=== PATIENT | male | born 1940 | race Two or more races ===

== ENCOUNTER 2018-12-22 15:04 | Inpatient (IN) | payer MEDICARE, MEDICAID ==
[~2018-12-22] VITALS: Ht 175.3 cm; Wt 65.6 kg
[2018-12-22] MEDS ORDERED: SODIUM CHLORIDE 0.9% 1,000 ML IV ONE (15:55)
[2018-12-22 16:22] LABS: Basophils # (auto) 0 uL; Basophils % (auto) 0.6 % (0.0-2.0); Eosinophils # (auto) 0 uL; Eosinophils % (auto) 0.6 % (0.0-7.0); Hematocrit 40.8 % (41.0-53.0); Hemoglobin 13.6 g/dL (13.5-17.5); Lymphocytes % (auto) 15.2 % (10.0-50.0); Mean Corpuscular Hemoglobin 29.9 pg (28.0-32.0); Mean Corpuscular Hgb Conc. 33.3 g/dL (32.0-36.0); Mean Corpuscular Volume 89.7 fL (80.0-100.0); Monocytes # (auto) 0.4 uL; Monocytes % (auto) 6.2 % (0.0-12.0); Neutrophils # (auto) 4.9 uL; Neutrophils % (auto) 77.4 % (37.0-80.0); Platelet Count (auto) 174 10^3/uL (140-450); Red Blood Cells 4.55 10^6/uL (4.5-5.90); Red Cell Distribution Width 16.4 % (11.8-14.3); White Blood Cell 6.3 10^3/uL (4.4-10.8)
[2018-12-22 16:31] LABS: Albumin 3.4 g/dL (3.4-5.0); Anion Gap 4 (5-15); Blood Urea Nitrogen 16 mg/dL (7-18); Calcium 8.5 mg/dL (8.5-10.1); Carbon Dioxide 29 mmol/L (21-32); Chloride 108 mmol/L (98-107); Glucose 108 mg/dL (74-106); Potassium 3.9 mmol/L (3.5-5.1); Sodium 141 mmol/L (136-145)
[2018-12-22 16:36] LABS: Alkaline Phosphatase 120 U/L (45-117); Aspartate Aminotransferase 15 U/L (15-37); BUN/Creatinine Ratio 16.8; Bilirubin, Total 0.3 mg/dL (0.2-1.0); GFR African American 98 mL/min; GFR Non-African American 81 mL/min; Total Protein 6.7 g/dL (6.4-8.2)
[2018-12-22 16:59] LABS: Alanine Aminotransferase 6 U/L (16-61)
[2018-12-22] MEDS ORDERED: ONDANSETRON HCL 4 MG/2 ML VIAL IV PRN (21:15)
[2018-12-22] MEDS ORDERED: ACETAMINOPHEN 325 MG TAB PO PRN (21:15)
[2018-12-22] MEDS ORDERED: DOCUSATE SOD 100 MG CAP PO PRN (21:15)
[2018-12-22] MEDS ORDERED: MORPHINE SULF INJ 2 MG/ML SYRINGE 1ML IV PRN (22:00)
[2018-12-22] MEDS ORDERED: NITROGLYCERIN 0.4 MG SL TAB SL PRN (22:00)
[2018-12-22 22:23] LABS: INR 1.05 (0.9-1.15); Partial Thromboplastin Time 28.7 sec (23.64-32.05)
--- NOTE | 2018-12-22 23:11 | NUR ---
Opening Shift Note Received from ed with no sbar handoff report. Assumed care of patient. Patient is awake, alert, and orientated x 4. No S/S of distress/SOB or pain with 2L of oxygen given via nasal cannula. Son is at bedside. Bed is in lowest position with side rails up x 2. Bed brakes are locked and call light is with in reach. HOB is 30 degrees. Instructed on POC and to call for assist PRN, will continue to monitor for changes Q1hr and PRN.
[2018-12-23] MEDS: CARBIDOPA W LEVODOPA 25/250mg TABLET PO SCH ×5 (00:25→23:16)
[2018-12-23] MEDS: FAMOTIDINE 20 MG TAB PO SCH ×3 (00:25→23:15)
[2018-12-23] MEDS ORDERED: ENTA200T4 OR (02:23)
[2018-12-23] MEDS ORDERED: POTA10TA51 PO (02:23)
[2018-12-23] MEDS ORDERED: CHOL50007 PO (02:23)
[2018-12-23] MEDS ORDERED: PANT20TA59 PO (02:23)
[2018-12-23] MEDS ORDERED: RASA1TAB4 PO (02:23)
[2018-12-23] MEDS ORDERED: CARB25TA75 PO (02:23)
[2018-12-23] MEDS ORDERED: APIX5TAB PO (02:23)
[2018-12-23 05:00] VITALS: BP 121/70
[2018-12-23 06:59] LABS: Anion Gap 4 (5-15); BUN/Creatinine Ratio 16.9; Blood Urea Nitrogen 13 mg/dL (7-18); Calcium 8.3 mg/dL (8.5-10.1); Carbon Dioxide 28 mmol/L (21-32); Chloride 112 mmol/L (98-107); GFR African American 125 mL/min; GFR Non-African American 103 mL/min; Glucose 79 mg/dL (74-106); Potassium 3.7 mmol/L (3.5-5.1); Sodium 144 mmol/L (136-145)
--- NOTE | 2018-12-23 07:03 | NUR ---
CLOSING NOTES ENDORSED CARE TO DAY SHIFT NURSEDONALD.
[2018-12-23 09:00] VITALS: BP 103/65
[2018-12-23] MEDS ORDERED: INFLUENZA QUAD 2019-2020 0.5ml SYRG IM ONE (09:00)
[2018-12-23] MEDS: ASPirin 81 mg TAB PO SCH (10:24)
--- NOTE | 2018-12-23 10:41 | NUR ---
PASSED MORNING MEDICATIONS, PT AWAKE, ALERT, ORIENTED x3. DENIES ANY DISCOMFORT AT MOMENT. EFFORTLESS BREATHING ON 2LNC. BED LOCKED AND IN LOWEST POSITION, CALL LIGHT WITHIN REACH. WILL CONTINUE TO MONITOR.
--- NOTE | 2018-12-23 12:00 | NUR ---
PT REPORTS HAVING DIFFICULTY CATCHING BREATH, PRESENTS [place] RR:28 PT PULLED UP IN BED, PLACED IN HIGH FOWLERS, PLACED O2 AT 3LNC PT REPORTS NOW BREATHING BETTER; RR: 19 AT MOMENT. VS: HR:56; BP: 112/58, 100% 3LNC WILL CONTINUE TO MONITOR.
[2018-12-23 13:00] VITALS: BP 106/63
--- NOTE | 2018-12-23 13:55 | NUR ---
DR. GARCIA IN TO SEE PT. MADE AWARE OF SOB EPISODE. CARDIOLOGY CONSULT CALLED.
--- NOTE | 2018-12-23 15:38 | NUR ---
PT BACK FROM STRESS TEST. FIRST PHASE. PHASE 2 IN AM; PER TECH. PT PROVIDED COMFORTABLE ENVIRONMENT. CALL LIGHT WITHIN REACH.
--- NOTE | 2018-12-23 15:43 | NUR ---
SPOKE TO SON REGARDING ELIQUIS PRESCRIPTION. PT ON ELIQUIS FOR Hx OF LEFT LUNG BLOOD CLOT. MD GARCIA MADE AWARE OF FINDING; RECEIVED ORDER FOR CONTINUATION OF ELIQUIS. ORDER INPUT.
[2018-12-23] MEDS ORDERED: APIXABAN 5 MG TAB PO ONE (16:00)
--- NOTE | 2018-12-23 16:08 | NUR ---
DR. GARCIA MADE AWARE OF D-DIMER VALUE: 0.46
--- NOTE | 2018-12-23 16:40 | NUR ---
IV INSERTION TO RFA#20 FOR STRESS TEST IN AM. PT TOLERATED PROCEDURE WELL.
[2018-12-23 17:00] VITALS: BP 127/69
--- NOTE | 2018-12-23 19:24 | NUR ---
Opening Shift Note Received report from day shift nurseScott. Assumed care of patient. Patient is awake, alert, and orientated x 3. No S/S of distress/SOB or pain with 2L of oxygen given via nasal cannula. Bed is in lowest position with side rails up x 2. Bed brakes are locked and call light is with in reach. HOB is 30 degrees. Instructed on POC and to call for assist PRN, will continue to monitor for changes Q1hr and PRN.
[2018-12-23 22:00] VITALS: BP 106/64
[2018-12-23] MEDS: APIXABAN 5 MG TAB PO SCH (23:15)
--- NOTE | 2018-12-24 00:01 | NUR ---
npo pt is npo after midnight for procedure today.
--- NOTE | 2018-12-24 04:24 | NUR ---
ekg Scheduled ekg done on patient. No changes from prior.
[2018-12-24 05:00] VITALS: BP 136/65
[2018-12-24] MEDS: CARBIDOPA W LEVODOPA 25/250mg TABLET PO SCH ×4 (06:00→22:05)
--- NOTE | 2018-12-24 07:21 | NUR ---
closing notes endorsed care to day shift nurseAshly.
[2018-12-24] MEDS ORDERED: ADENOSINE 60 MG in GIVE UN-DILUTED 0 ML IV ONE (08:15)
[2018-12-24 09:07] VITALS: BP 114/72
[2018-12-24] MEDS: APIXABAN 5 MG TAB PO SCH ×2 (12:44→22:05)
[2018-12-24] MEDS: FAMOTIDINE 20 MG TAB PO SCH ×2 (12:44→22:05)
[2018-12-24] MEDS: ASPirin 81 mg TAB PO SCH (12:44)
[2018-12-24 13:16] VITALS: BP 118/71
[2018-12-24 16:03] VITALS: BP 117/76
--- NOTE | 2018-12-24 19:11 | NUR ---
Opening Shift Note Assumed care of patient, awake and alert x3. No S/S of distress/SOB or pain. Patient's son is at bedside. Call light is within reach, side rails up x2, bed is in lowest position. Instructed on POC and to call for assist PRN. All questions and concerns answered, will continue to monitor for changes Q1hr and PRN.
--- NOTE | 2018-12-24 20:13 | NUR ---
Possible DC tomorrow Patient's son stated if his dad was to be discharged tomorrow he wouldn't be able to pick him up until after 1800. He gets off work at 1800 and would be able to come here right after.
[2018-12-24 22:00] VITALS: BP 148/76
[2018-12-25 05:00] VITALS: BP 98/62
--- NOTE | 2018-12-25 06:35 | NUR ---
SINEMET NOT AVAILABLE Called pharmacy because Sinemet is unavailable. They said they will bullet it up.
[2018-12-25] MEDS: CARBIDOPA W LEVODOPA 25/250mg TABLET PO SCH ×2 (07:00→12:07)
--- NOTE | 2018-12-25 07:50 | NUR ---
Morning Note Assumed care of patient, awake and alert. Respiration are even and unlabored. No S/S of distress/SOB. Bed in lowest position, breaks locked, side rails up x2, call light with in reach. Instructed on POC and to call for assist PRN, will continue to monitor for changes Q1hr and PRN.
[2018-12-25 08:41] VITALS: BP 149/75
[2018-12-25] MEDS: FAMOTIDINE 20 MG TAB PO SCH (09:42)
[2018-12-25] MEDS: ASPirin 81 mg TAB PO SCH (09:42)
[2018-12-25] MEDS: APIXABAN 5 MG TAB PO SCH (09:42)
--- NOTE | 2018-12-25 12:55 | NUR ---
Discharge instructions given as ordered. Encourage to follow up with PMD as instructed. All questions and concerns addressed. Patient and family verbalized understanding. Medication reconciliation form completed and copy given to patient. No home medications held in Pharmacy and none returned to patient, and no needed vaccines given. IV removed with catheter intact, pressure dressing applied. Telemetry unit returned to ICU. Patient waiting for transportation home from family. Will continue to monitor.
[2018-12-25 13:01] VITALS: BP 99/61
--- NOTE | 2018-12-25 14:50 | NUR ---
Patient taken to vehicle via wheelchair with all personal belongings, accompanied by staff and family member. No distress noted at time of departure.
== END 2018-12-25 14:50 | disposition home or self-care (01) | DRG 203 ==
LOC: ER 15:13 → TELE 15:14 → TELE-CENTR 23:02
PROVIDERS: ADMIT Nurse Practitioner; ATTEND Internal Medicine
DX: R07.89 Other chest pain (principal); G20 Parkinson's disease; I70.0 Atherosclerosis of aorta; R29.810 Facial weakness; Z86.711 Personal history of pulmonary embolism; Z79.01 Long term (current) use of anticoagulants; Z23 Encounter for immunization
CPT/HCPCS: 36415; 70450; 71045; 78452; 80048; 80053; 84484; 85025; 85379; 85610; 85730; 93005; 93017; 93306; 96361; 96365; 96372; G0378; J0153

== ENCOUNTER 2019-10-19 11:31 | Emergency (ER) | payer MEDICARE, MEDICAID ==
[~2019-10-19] VITALS: Ht 157.5 cm; Wt 79.4 kg
[~2019-10-19 11:31] MED LIST: APIX5TAB PO; CARB25TA75 PO; CHOL50007 PO; ENTA200T4 OR; PANT20TA59 PO; POTA10TA51 PO; RASA1TAB4 PO
[2019-10-19] MEDS ORDERED: SODIUM CHLORIDE 0.9% 1,000 ML IV ONE (12:35)
[2019-10-19 13:56] LABS: Basophils # (auto) 0 10 ^3/uL (0-0.2); Basophils % (auto) 0.6 % (0.0-2.0); Eosinophils # (auto) 0 10 ^3/uL (0-0.8); Eosinophils % (auto) 0.2 % (0.0-7.0); Hematocrit 41.8 % (41.0-53.0); Hemoglobin 13.6 g/dL (13.5-17.5); Lymphocytes # (auto) 0.9 10 ^3/uL (0.4-5.4); Mean Corpuscular Hemoglobin 28.5 pg (28.0-32.0); Mean Corpuscular Hgb Conc. 32.6 g/dL (32.0-36.0); Mean Corpuscular Volume 87.3 fL (80.0-100.0); Monocytes # (auto) 0.3 10 ^3/uL (0-1.3); Monocytes % (auto) 5.8 % (0.0-12.0); Neutrophils # (auto) 4.1 10 ^3/uL (1.6-8.6); Neutrophils % (auto) 76.4 % (37.0-80.0); Platelet Count (auto) 178 10^3/uL (140-450); Red Blood Cells 4.79 10^6/uL (4.5-5.90); Red Cell Distribution Width 16.3 % (11.8-14.3); White Blood Cell 5.4 10^3/uL (4.4-10.8)
[2019-10-19 14:12] LABS: Alanine Aminotransferase 17 U/L (16-61); Albumin 3.4 g/dL (3.4-5.0); Anion Gap 2 (5-15); Aspartate Aminotransferase 14 U/L (15-37); Blood Urea Nitrogen 16 mg/dL (7-18); Calcium 8.3 mg/dL (8.5-10.1); Carbon Dioxide 28 mmol/L (21-32); Chloride 110 mmol/L (98-107); Glucose 93 mg/dL (74-106); Potassium 3.9 mmol/L (3.5-5.1); Sodium 140 mmol/L (136-145)
[2019-10-19 14:17] LABS: Alkaline Phosphatase 101 U/L (45-117); BUN/Creatinine Ratio 17.4; Bilirubin, Total 0.7 mg/dL (0.2-1.0); GFR African American 102 mL/min; GFR Non-African American 84 mL/min; Total Protein 6.7 g/dL (6.4-8.2)
[2019-10-19 15:21] VITALS: BP 126/63
== END 2019-10-19 17:21 | disposition home or self-care (01) ==
LOC: EDBD 11:31 → ER 11:31
DX: T67.5XXA Heat exhaustion, unspecified, initial encounter (principal); E86.0 Dehydration; I10 Essential (primary) hypertension; G20 Parkinson's disease; F02.80 Dementia in other diseases classified elsewhere, unspecified severity, without behavioral disturbance, psychotic disturbance, mood disturbance, and anxiety; Z79.899 Other long term (current) drug therapy; X58.XXXA Exposure to other specified factors, initial encounter; Y93.89 Activity, other specified; Y92.89 Other specified places as the place of occurrence of the external cause; Y99.8 Other external cause status
CPT/HCPCS: 36415; 70450; 71045; 80053; 82550; 83880; 84484; 85025; 93005; 96360; 96361